=== PATIENT | female | born 1985 | race Asian ===

== ENCOUNTER 2017-08-22 13:58 | Emergency (ER) | payer MEDICAID ==
[~2017-08-22] VITALS: Ht 160 cm; Wt 77.0 kg
[2017-08-22 15:43] LABS: INFLUENZA TYPE A NEGATIVE FOR TYPE A (NEGATIVE)
[2017-08-22 15:46] LABS: INFLUENZA TYPE B POSITIVE FOR TYPE B (NEGATIVE)
[2017-08-22 16:34] VITALS: BP 112/66
== END 2017-08-22 16:50 | disposition home or self-care (01) ==
LOC: EMS 14:00
DX: J10.1 Influenza due to other identified influenza virus with other respiratory manifestations (principal)
CPT/HCPCS: 87804; 99284

== ENCOUNTER 2024-04-01 13:48 | Emergency (ER) | payer MEDICAID, OTHER ==
[~2024-04-01] VITALS: Ht 157.5 cm; Wt 63.6 kg
[2024-04-01 13:51] VITALS: TEMP 98.2
[2024-04-01] MEDS: FAMOTIDINE 20 MG/2 ML VIAL IVP ONE (14:26)
[2024-04-01] MEDS: DiphenhydrAMINE HCL 50 MG/ML VIAL IVP ONE (14:26)
[2024-04-01] MEDS: EPINEPHrine 1:1,000 [1 MG/ML] VIAL IM ONE (14:27)
[2024-04-01] MEDS ORDERED: EPIN0.3P3 IM (15:16)
[2024-04-01 18:00] VITALS: BP 124/72; PULSE 82; RESP 18; O2SAT 97
== END 2024-04-01 18:12 | disposition home or self-care (01) ==
LOC: EMS 13:48
DX: T78.09XA Anaphylactic reaction due to other food products, initial encounter (principal); Z91.013 Allergy to seafood; Y99.8 Other external cause status
CPT/HCPCS: 99291; 96374; 96375; 96372; J1200; J0171; J3490